=== PATIENT | female | born 1980 | race Caucasian/White ===

== ENCOUNTER 2018-09-24 10:56 | Outpatient (CLI) | payer OTHER ==
--- NOTE | 2018-09-24 11:34 | RAD ---
FRONTAL AND LATERAL CHEST: Date: 09-24-18 Comparison: None. History: Shortness of breath. FINDINGS: No pneumothorax, pleural fluid, focal consolidation or alveolar edema. Heart and mediastinal contours appear unremarkable. There is mild lower thoracic spine degenerative change. IMPRESSION: No acute findings. POS: [facility]
== END 2018-09-24 10:57 | disposition home or self-care (01) ==
LOC: RAD 10:56
PROVIDERS: ATTEND Internal Medicine Critical Care Medicine
DX: R06.00 Dyspnea, unspecified (principal)
CPT/HCPCS: 71046

== ENCOUNTER 2019-01-20 07:41 | Outpatient (CLI) | payer OTHER ==
--- NOTE | 2019-01-21 15:51 | PFT ---
PATIENT HISTORY: HEIGHT: 37 WEIGHT: 214 SMOKER: NO HOW LON YRS PACKS PER DAY: .5 PRODUCTIVE COUGH: LUNG DISEASE: PHYSICIAN INTERPRETATION FINAL REPORT: Pulmonary Function Test revels normal Vital Capacity and Expiratory Flows with no further improvement after Bronchodilator Therapy. Airway resistance was increased. Total Lung Capacity slightly decreased, Gas transfer is decreased. IMPRESSION: Patients Flow Volume Loop, Vital Capacity, and Expiratory Flows are normal. Diffusion capacity decreased, possibly related to an unknown interstitial process. 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
== END 2019-01-20 07:42 | disposition home or self-care (01) ==
LOC: CP 07:41
PROVIDERS: ATTEND Family Medicine
DX: R06.02 Shortness of breath (principal)
CPT/HCPCS: 94060; 94727; 94729